=== PATIENT | male | born 1995 | race Caucasian/White ===

== ENCOUNTER 2020-05-08 11:12 | Emergency (ER) | payer OTHER ==
[2020-05-08] MEDS ORDERED: Ondansetron PF 4 MG/2 ML Vial ONE (12:04)
--- NOTE | 2020-05-08 13:36 | RAD ---
PORTABLE CHEST ONE VIEW: Date: 05-08-2020 Time: 11:47 a.m. History: Dyspnea. FINDINGS: The heart size is normal. The lungs are clear. The bony thorax is normal. IMPRESSION: Normal exam. POS: [facility]
== END 2020-05-08 13:49 | disposition home or self-care (01) ==
LOC: ERS 11:12
DX: U07.1 COVID-19 (principal); R42 Dizziness and giddiness; R52 Pain, unspecified; R11.2 Nausea with vomiting, unspecified; J45.909 Unspecified asthma, uncomplicated; F32.9 Major depressive disorder, single episode, unspecified
CPT/HCPCS: 71045; 93005; 96361; 96374; J2405

== ENCOUNTER 2020-09-20 12:33 | Outpatient (CLI) | payer OTHER | END 2020-09-20 12:34 | disposition home or self-care (01) | LOC: ULT 12:33 | PROVIDERS: ATTEND Family Medicine | DX: R07.9 Chest pain, unspecified (principal); I37.1 Nonrheumatic pulmonary valve insufficiency | CPT/HCPCS: 93306 ==